=== PATIENT | female | born 1960 | race American Indian/Alaskan Native ===

== ENCOUNTER → 2017-07-04 | Outpatient (CLI) | payer MEDICARE, MEDICAID | LOC: SLR 11:00 | PROVIDERS: ATTEND Specialist | DX: G47.30 Sleep apnea, unspecified (principal) | CPT/HCPCS: G0399 ==

== ENCOUNTER 2017-11-04 06:15 | Day surgery (SDC) | payer MEDICARE ==
[2017-11-04] MEDS ORDERED: WATER FOR IRRIG STERILE IR ONE (07:17)
[2017-11-04] MEDS ORDERED: HURRICAINE ONE 20% TOPICAL SPRAY MM (07:59)
[2017-11-04] MEDS ORDERED: NACL 0.9% 1000 ML 1,000 ML IV SCH (08:00)
[2017-11-04] MEDS ORDERED: DIPRIVAN 10 MG/ML IV ONE ×2 (08:30)
--- NOTE | 2017-11-04 09:44 | Discharge Summary ---
Providers - Providers Attending physician: BRIAN PEÑALOZA Primary care physician: CHINO DEL REAL Hospitalization Condition: Good Hospital course: 57 y.o F underwent EGD. She tolerated the procedure well. Distal esophagitis was noted. A biopsy was taken. She was given rx for carafate and omeprazole. She currently takes nexium. I told her she can either take the nexium or ompeprazole but do not take both. Disposition: DC-01 TO HOME OR SELFCARE Core Measure Documentation - Palliative Care Palliative Care/ Comfort Measures: Not Applicable - Core Measures Any of the following diagnoses?: none Exam - Physical Exam Narrative exam: no acute changes - Constitutional Vitals: Temp Pulse Resp BP Pulse Ox 98 F 84 13 120/84 97 11/04/17 08:08 11/04/17 08:08 11/04/17 08:08 11/04/17 08:08 11/04/17 08:08 Plan Additional Instructions: follow up in Dr. Ruelas office. Do not take nexium and omeprazole. Take one or the other. Follow up with: CHINO DEL REAL MD [Primary Care Provider] - 7 Days
--- NOTE | 2017-11-04 09:44 | Operative Report ---
Operative Report Operative Report: EGD Post lap sleeve gastrectomy DATE: 11/04/17 OPERATIVE REPORT - EGD PREOP DIAGNOSIS: gastric dyspepsia, previous sleeve gastrectomy POSTOP DIAGNOSIS: gastritis SURGERY: Upper endoscopy. SURGEON: Dr. Omid Wilkes MAIL PROCESSING MACHINE OPERATOR: Brooks Dunn DO. TYPE OF ANESTHESIA: MAC. ESTIMATED BLOOD LOSS: None. COMPLICATIONS: None. SPECIMENS REMOVED: antral biopsy FINDINGS: gastritis INDICATIONS:INDICATION FOR PROCEDURE: Patient is a 57-year-old F s/p gastric sleeve 2012. The patient is here today for evaluation for revisional surgery. The patient is here for a planned EGD for gastric dyspepsia. She takes nexium but it does not relieve her symptoms PROCEDURE DETAILS: After consent was reviewed, patient was taken back to the operating room where patient was placed in the left lateral decubitus position and a bite block was placed in the mouth. After a time-out was called, MAC anesthesia was initiated. I then passed the endoscope into the patients oropharynx, into the esophagus, visualized the entire esophagus, which was all within normal limits. I then visualized the the sleeve stomach which showed gastritis.I performed an antral biopsy. The sleeve had normal sleeve anatomy. desufflated the gastric sleeve and removed the endoscope. Patient tolerated procedure well and was transferred to recovery room in good and stable condition.
[2017-11-04 10:07] VITALS: BP 112/62
--- NOTE | 2017-11-04 11:28 | Anesthesia Consultation ---
Anesthesia Consult and Med Hx Date of service: 11/04/17 - Airway Anesthetic Teeth Evaluation: Poor (missing) ROM Head & Neck: Adequate Mental/Hyoid Distance: Adequate Mallampati Class: Class II Intubation Access Assessment: Probably Good - Pulmonary Exam CTA: Yes - Cardiac Exam Cardiac Exam: RRR - Pre-Operative Health Status ASA Pre-Surgery Classification: ASA3 Proposed Anesthetic Plan: MAC - Pulmonary Hx Smoking: Yes SOB: Yes Hx Sleep Apnea: Yes - Cardiovascular System Hx Hypertension: Yes - Endocrine Hx Hypothyroidism: Yes - Other Systems Hx Obesity: Yes - Additional Comments Anesthesia Medical History Comments: h/o RA
--- NOTE | 2017-11-04 11:34 | Anesthesia Day of Surgery ---
Anesthesia Day of Surgery - Day of Surgery Patient Examined: Yes Patient H&P Reviewed: Yes Patient is NPO: Yes
--- NOTE | 2017-11-04 15:07 | Post Anesthesia Evaluation ---
- Post Anesthesia Evaluation Patient Participated: Yes Airway Patent: Yes Stable Respiratory Function: Yes Nausea/Vomiting: No Temp > 96.8F: Yes Pain Manageable: Yes Adequeate Hydration: Yes Anesthesia Complications: No
== END 2017-11-04 06:16 | disposition home or self-care (01) ==
LOC: GIO 06:15
PROVIDERS: ATTEND Specialist
PROC: 0DB98ZZ Excision of Duodenum, Via Natural or Artificial Opening Endoscopic (ICD-10-PCS; principal; 2017-11-04)
DX: K29.70 Gastritis, unspecified, without bleeding (principal); M06.9 Rheumatoid arthritis, unspecified; I10 Essential (primary) hypertension; G47.33 Obstructive sleep apnea (adult) (pediatric); E03.9 Hypothyroidism, unspecified; F41.9 Anxiety disorder, unspecified; F32.9 Major depressive disorder, single episode, unspecified; E66.01 Morbid (severe) obesity due to excess calories; Z68.41 Body mass index [BMI] 40.0-44.9, adult; Z98.84 Bariatric surgery status; Z90.710 Acquired absence of both cervix and uterus; Z87.891 Personal history of nicotine dependence; Z98.890 Other specified postprocedural states
CPT/HCPCS: 43239; 88305; 88342; J2704; J7030

== ENCOUNTER 2018-05-26 07:00 | Inpatient (IN) | payer MEDICARE ==
[2018-05-26] MEDS ORDERED: REGLAN IV PRN (09:34)
[2018-05-26] MEDS ORDERED: MORPHINE IV PRN (09:34)
[2018-05-26] MEDS ORDERED: DILAUDID IV PRN (09:34)
[2018-05-26] MEDS ORDERED: NORCO PO PRN (09:34)
[2018-05-26] MEDS ORDERED: ZOFRAN IV PRN ×2 (09:34→11:23)
[2018-05-26] MEDS ORDERED: APRESOLINE IV PRN (09:34)
[2018-05-26] MEDS ORDERED: MYLICON PO PRN (09:34)
[2018-05-26] MEDS ORDERED: ANCEF/STERILE WATER 2 GM/20 ML 2 GM/20 ML SYRINGE IV NR (10:00)
[2018-05-26] MEDS ORDERED: TRANSDERM-SCOP TD SCH (10:00)
[2018-05-26] MEDS ORDERED: FLAGYL 500 MG/100 ML 500 MG/100 ML BAG IV NR (10:00)
--- NOTE | 2018-05-26 11:24 | Anesthesia Day of Surgery ---
Anesthesia Day of Surgery - Day of Surgery Patient Examined: Yes Patient H&P Reviewed: Yes Patient is NPO: Yes
--- NOTE | 2018-05-26 11:28 | Anesthesia Consultation ---
Anesthesia Consult and Med Hx Date of service: 05/26/18 - Airway Anesthetic Teeth Evaluation: Poor (multiple missing) ROM Head & Neck: Adequate Mental/Hyoid Distance: Adequate Mallampati Class: Class III Intubation Access Assessment: Possibly Difficult - Pulmonary Exam CTA: Yes - Cardiac Exam Cardiac Exam: RRR - Pre-Operative Health Status ASA Pre-Surgery Classification: ASA3 Proposed Anesthetic Plan: General - Pulmonary Hx Smoking: Yes (QUIT 20 YEARS AGO) SOB: Yes Hx Sleep Apnea: Yes - Cardiovascular System Hx Hypertension: Yes (10Y) Hx Heart Attack/AMI: No Hx Angina: No (EF:69%) - Central Nervous System Hx Back Pain: Yes Hx Psychiatric Problems: Yes (anxiety, depression) - Gastrointestinal Hx Gastroesophageal Reflux Disease: Yes - Endocrine Hx Hypothyroidism: Yes - Other Systems Hx Alcohol Use: No Hx Substance Use: No Hx Cancer: No Hx Obesity: Yes (morbid)
[2018-05-26] MEDS ORDERED: LACTATED RINGERS 1,000 ML IV SCH ×2 (12:00→16:00)
[2018-05-26] MEDS ORDERED: LOVENOX SUB-Q NR (12:00)
[2018-05-26 12:31] LABS: BUN/Creatinine Ratio 11; Blood Urea Nitrogen 12 mg/dL (7-17); Calcium 9.9 mg/dL (8.4-10.2); Hemolysis Index 6
[2018-05-26] MEDS ORDERED: XYLOCAINE 1% 20 mL ONE (13:02)
[2018-05-26] MEDS ORDERED: MARCAINE-EPI 0.5%-1:200,000 INFILTRATI ONE ×2 (13:02→15:01)
[2018-05-26] MEDS ORDERED: QUELICIN ONE (14:12)
[2018-05-26] MEDS ORDERED: ZEMURON IV ONE (14:12)
[2018-05-26] MEDS ORDERED: DIPRIVAN 10 MG/ML IV ONE (14:12)
[2018-05-26] MEDS ORDERED: XYLOCAINE MPF 2% ONE (14:12)
[2018-05-26] MEDS ORDERED: SUBLIMAZE ONE (14:25)
[2018-05-26] MEDS ORDERED: VERSED ONE (14:34)
[2018-05-26] MEDS ORDERED: ARTIFICIAL TEARS OPHTH OINT ONE (14:54)
[2018-05-26] MEDS ORDERED: XYLOCAINE 1% 20 mL INFILTRATI ONE (15:01)
[2018-05-26] MEDS ORDERED: NEO SYNEPHRINE/NS Syringe(OR USE) IV ONE ×2 (15:18→15:22)
[2018-05-26] MEDS ORDERED: ZOFRAN ONE (15:32)
[2018-05-26] MEDS ORDERED: DECADRON ONE (15:32)
[2018-05-26] MEDS: DILAUDID IV PRN ×2 (16:35→16:50)
--- NOTE | 2018-05-27 06:12 | Progress Note ---
Assessment and Plan 58F s/p diag lap, FERNANDO 05/26 #1 s/p diag lap - discussed inability to complete RYGB with patient, she expressed understanding - routine postop care - postop pain control - ambulate - IS use Dispo: Home today - Patient Problems (1) Morbid obesity due to excess calories Current Visit: Yes Status: Chronic Subjective Date of service: 05/27/18 Patient Reports: Positive: no new complaints Objective Vital Signs - 12hr 05/26/18 05/26/18 05/26/18 18:30 20:08 20:10 Temperature 97.9 F 97.5 F L Pulse Rate 68 75 63 Respiratory 12 20 Rate Blood Pressure 94/41 O2 Sat by Pulse 99 99 99 Oximetry 05/27/18 05/27/18 05/27/18 01:00 01:03 01:04 Temperature 98.1 F 122.0 F H 98.1 F Pulse Rate 61 60 Respiratory 18 Rate Blood Pressure 113/65 O2 Sat by Pulse 97 97 Oximetry 05/27/18 05:50 Temperature 98.2 F Pulse Rate 80 Respiratory 18 Rate Blood Pressure 138/75 O2 Sat by Pulse 98 Oximetry - General physical appearance well developed, well nourished, no distress - Eyes normal occular movement - Neck no masses - Respiratory clear to auscultation - Abdomen soft, other (nontender, nondistended, bandages c/d/i) - Integumentary no rash - Labs 05/26/18 11:34 Diabetes panel 05/26/18 Range/Units 11:34 Sodium 143 (137-145) mmol/L Potassium 3.6 (3.6-5.0) mmol/L Chloride 97.0 L (98-107) mmol/L Carbon Dioxide 32 H (22-30) mmol/L BUN 12 (7-17) mg/dL Creatinine 1.1 (0.7-1.2) mg/dL Glucose 98 (65-100) mg/dL Calcium 9.9 (8.4-10.2) mg/dL Calcium panel 05/26/18 Range/Units 11:34 Calcium 9.9 (8.4-10.2) mg/dL Pituitary panel 05/26/18 Range/Units 11:34 Sodium 143 (137-145) mmol/L Potassium 3.6 (3.6-5.0) mmol/L Chloride 97.0 L (98-107) mmol/L Carbon Dioxide 32 H (22-30) mmol/L BUN 12 (7-17) mg/dL Creatinine 1.1 (0.7-1.2) mg/dL Glucose 98 (65-100) mg/dL Calcium 9.9 (8.4-10.2) mg/dL Adrenal panel 05/26/18 Range/Units 11:34 Sodium 143 (137-145) mmol/L Potassium 3.6 (3.6-5.0) mmol/L Chloride 97.0 L (98-107) mmol/L Carbon Dioxide 32 H (22-30) mmol/L BUN 12 (7-17) mg/dL Creatinine 1.1 (0.7-1.2) mg/dL Glucose 98 (65-100) mg/dL Calcium 9.9 (8.4-10.2) mg/dL
--- NOTE | 2018-05-27 06:17 | Discharge Summary ---
Providers - Providers Date of Admission: 05/26/18 09:14 Date of discharge: 05/27/18 Attending physician: BRIAN PEÑALOZA Primary care physician: CHINO DEL REAL Hospitalization Condition: Good Hospital course: 58F admitted after FERNANDO calderon for routine postop monitoring. No acute events. She had an unremarkable course and was discharged home the next morning. Disposition: DC-01 TO HOME OR SELFCARE - Discharge Diagnoses (1) Morbid obesity due to excess calories Status: Chronic Core Measure Documentation - Palliative Care Palliative Care/ Comfort Measures: Not Applicable - Core Measures Any of the following diagnoses?: none - VTE Discharge Requirements Deep Vein Thrombosis/Pulmonary Embolism Present on Admission: No - Acute CA Discharge Requirements Aspirin at discharge: No Reason for no aspirin on DC: Surgical contraindication - Heart Failure Discharge Requirements NADIRA/ARB for LVSD if EF <40%: Not Applicable - Stroke Discharge Requirements Statin for LDL = or >70 mg/dl on DC: No Exam - Constitutional Vitals: Temp Pulse Resp BP Pulse Ox 98.2 F 80 18 138/75 98 05/27/18 05:50 05/27/18 05:50 05/27/18 05:50 05/27/18 05:50 05/27/18 05:50 General appearance: Present: no acute distress, well-nourished - EENT Eyes: Present: PERRL ENT: hearing intact - Neck Neck: Present: supple - Respiratory Respiratory effort: normal - Cardiovascular Rhythm: regular - Extremities Extremities: no ischemia Peripheral Pulses: within normal limits - Abdominal General gastrointestinal: Present: soft, non-distended, other (incisions c/d/i) Plan Activity: other (No heavy lifting > 15 lbs for 4-5 weeks) Weight Bearing Status: Full Weight Bearing Diet: clear liquids, advance as tolerated Wound: keep clean and dry, change dressing Follow up with: BRIAN PEÑALOZA MD [Staff Physician] - 14 Days
--- NOTE | 2018-05-27 07:34 | Post Anesthesia Evaluation ---
- Post Anesthesia Evaluation Patient Participated: Yes Airway Patent: Yes Stable Respiratory Function: Yes Nausea/Vomiting: No Temp > 96.8F: No Pain Manageable: Yes Adequeate Hydration: Yes Anesthesia Complications: No
[2018-05-27 08:46] VITALS: BP 94/39
[2018-05-27] MEDS ORDERED: PROTONIX PO SCH (10:00)
[2018-05-27] MEDS ORDERED: LOVENOX SUB-Q SCH (10:00)
[2018-05-27] MEDS ORDERED: POTASSIUM 20 MG PO SCH (10:00)
[2018-05-27] MEDS ORDERED: NON-FORMULARY (Nexium 40 MG) PO SCH (10:00)
[2018-05-27] MEDS ORDERED: COZAAR PO SCH (10:00)
[2018-05-27] MEDS ORDERED: K-DUR PO SCH (10:00)
[2018-05-27] MEDS ORDERED: HCTZ PO SCH (10:00)
[2018-05-27] MEDS ORDERED: TELMISARTAN HCTZ PO SCH (10:00)
[2018-05-27] MEDS ORDERED: DESVENLAFAXINE 50 MG PO SCH (10:00)
== END 2018-05-27 08:10 | disposition home or self-care (01) | DRG 621 ==
LOC: 3A 09:14 → 3B-SURG 18:08
PROVIDERS: ADMIT Specialist; ATTEND Specialist
PROC: 0D164ZA Bypass Stomach to Jejunum, Percutaneous Endoscopic Approach (ICD-10-PCS; principal; 2018-05-26)
DX: E66.01 Morbid (severe) obesity due to excess calories (principal); Z68.41 Body mass index [BMI] 40.0-44.9, adult; K30 Functional dyspepsia; K21.9 Gastro-esophageal reflux disease without esophagitis; I10 Essential (primary) hypertension; G47.30 Sleep apnea, unspecified; M06.9 Rheumatoid arthritis, unspecified; F41.9 Anxiety disorder, unspecified; F32.9 Major depressive disorder, single episode, unspecified; E03.9 Hypothyroidism, unspecified; Z87.891 Personal history of nicotine dependence; Z90.710 Acquired absence of both cervix and uterus; Z82.3 Family history of stroke; Z84.89 Family history of other specified conditions
CPT/HCPCS: 36415; 80048; J0330; J0690; J1100; J1170; J1650; J2250; J2370; J2405; J2704; J3010; J7120